=== PATIENT | male | born 1980 | race Caucasian/White ===

== ENCOUNTER 2020-01-26 13:34 | Outpatient (CLI) | payer OTHER ==
[2020-01-26] MEDS ORDERED: Magnevist 469MG/ML 20 ML VIAL ONE (14:41)
--- NOTE | 2020-01-26 15:50 | MRI ---
MRI of thebrain/orbits: 01/26/2020 COMPARISON:None available HISTORY:Left orbital tumor TECHNIQUE: Multiplanar multisequence MR imaging of thebrain/orbits with and without contrast Findings:The diffusion weighted imaging demonstrates no evidence for acute infarction. There is mild polypoid mucosal thickening involving the alveolar recess of bilateral maxillary sinuse s. No midline shift or mass effect is noted. No ventricular enlargement is seen. Arterial flow voids at the axial level of the skull base appear grossly unremarkable on the T2-weight ed imaging. There is a mass in the region of the lacrimal gland on the left measuring approximately 1.4 cm in AP dimension, 1.1 cm in transverse dimension, and 1.5 cm in craniocaudal dimension. This lesion is hyperintense on the precontrast T1-weighted imaging and the T2-weighted imaging. No appreciable enhan cement of this lesion is seen on the fat-saturated postcontrast T1-weighted imaging. In addition, the lesion demonstrates loss of signal on the fat saturated T2 imaging when compared to the standard nonfat saturated T2 imaging suggesting that this is a fatty lesion. There is mild signal heterogeneity along the posterior margin of the lesion with a punctate internal focus measuring 3 mm demonstrating decreased T1 and T2 signal. The extraocular muscles appear normal and symmetric. The optic nerves demonstrate normal symmetric si ze and signal intensity. The whole brain postcontrast imaging demonstrates no abnormal enhancement within the brain parenchyma . IMPRESSION:T2 hyperintense minimally complex fatty lesion within the region of the lacrimal gland on the left. 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 Mild heterogeneity may signify internal calcification. Further assessment with CT suggested. CODE T
== END 2020-01-26 13:35 | disposition home or self-care (01) ==
LOC: MRI 13:34
PROVIDERS: ATTEND Ophthalmology
DX: D49.89 Neoplasm of unspecified behavior of other specified sites (principal); H04.89 Other disorders of lacrimal system
CPT/HCPCS: 70553; A9579